=== PATIENT | female | born 1950 | race Caucasian/White ===

== ENCOUNTER → 2024-01-23 14:09 | Outpatient (REF) | payer MEDICARE, SELFPAY | LOC: WDC 14:09 | PROVIDERS: ATTENDING PHYSICIAN Internal Medicine Hematology & Oncology; FAMILY PHYSICIAN Internal Medicine | DX: Z12.31 Encounter for screening mammogram for malignant neoplasm of breast (principal); C50.912 Malignant neoplasm of unspecified site of left female breast | CPT/HCPCS: 77063; 77067 ==

== ENCOUNTER → 2025-01-26 11:26 | Outpatient (REF) | payer MEDICARE, SELFPAY | LOC: WDC 11:26 | PROVIDERS: ATTENDING PHYSICIAN Internal Medicine Hematology & Oncology; FAMILY PHYSICIAN Internal Medicine | DX: Z12.31 Encounter for screening mammogram for malignant neoplasm of breast (principal) | CPT/HCPCS: 77063; 77067 ==